=== PATIENT | female | born 1990 | race Two or more races ===

== ENCOUNTER 2019-07-03 13:01 | Emergency (ER) | payer MEDICAID ==
[~2019-07-03] VITALS: Ht 165.1 cm; Wt 57.0 kg
[~2019-07-03 13:01] MED LIST: CLIN-90 PO; HYDR1TAB PO; NO HOME MEDS; PNV; ZOF4T PO; [UNRECOGNIZED DRUG - CODE] PO
[2019-07-03 13:27] VITALS: BP 106/59
[2019-07-03 14:30] LABS: URINE HCG NEGATIVE (NEG)
[2019-07-03 14:31] LABS: CLARITY,URINE SLIGHTLY CLOUDY (Clear); COLOR,URINE YELLOW (Yellow); GLUCOSE, URINE NEGATIVE (Neg); KETONES,URINE 15 mg/dl (Neg); LEUKOCYTE ESTERASE ,URINE NEGATIVE (Neg); NITRITES, URINE POSITIVE (Neg); OCCULT BLOOD,URINE MODERATE (Neg); PROTEIN,URINE TRACE mg/dl (Neg)
[2019-07-03 14:32] LABS: UA COLLECTION TYPE CLN CATCH MIDSTREAM
[2019-07-03 14:37] LABS: BACTERIA,URINE 3+ /HPF (Neg); MUCUS STRANDS MANY /LPF (Neg); SQUAMOUS EPITHELIAL CELL,UR MANY /LPF (FEW)
[2019-07-03] MEDS ORDERED: IBUP-1984 PO (15:11)
== END 2019-07-03 15:23 | disposition home or self-care (01) ==
LOC: ER 13:02
DX: J10.1 Influenza due to other identified influenza virus with other respiratory manifestations (principal); K08.89 Other specified disorders of teeth and supporting structures; G89.29 Other chronic pain; Z56.0 Unemployment, unspecified; Z88.2 Allergy status to sulfonamides; Z88.1 Allergy status to other antibiotic agents; Z79.2 Long term (current) use of antibiotics; Z79.899 Other long term (current) drug therapy
CPT/HCPCS: 71046; 81001; 81025; 87502; 87503; 99284

== ENCOUNTER 2021-10-03 18:11 | Emergency (ER) | payer MEDICAID ==
[~2021-10-03] VITALS: Ht 167.6 cm; Wt 59.1 kg
[~2021-10-03 18:11] MED LIST changes: -CLIN-90 PO; +CLIN-97 PO
[2021-10-03] MEDS ORDERED: NAPR-996 PO (19:22)
[2021-10-03 19:30] VITALS: BP 124/82
== END 2021-10-03 19:31 | disposition home or self-care (01) ==
LOC: ER 18:13
DX: G56.01 Carpal tunnel syndrome, right upper limb (principal); M25.531 Pain in right wrist; G89.29 Other chronic pain; F17.200 Nicotine dependence, unspecified, uncomplicated; Z72.89 Other problems related to lifestyle; Z56.0 Unemployment, unspecified; Z88.1 Allergy status to other antibiotic agents; Z79.2 Long term (current) use of antibiotics; Z79.899 Other long term (current) drug therapy
CPT/HCPCS: 99281

== ENCOUNTER 2021-10-25 19:47 | Emergency (ER) | payer MEDICAID ==
[~2021-10-25] VITALS: Ht 167.6 cm; Wt 59.4 kg
[~2021-10-25 19:47] MED LIST changes: +NAPR-996 PO
[2021-10-25 20:53] VITALS: BP 109/75
[2021-10-26 06:28] LABS: HIV ANTIBODY 1&2 RAPID NON-REACTIVE (Neg)
== END 2021-10-26 00:47 | disposition left against medical advice (07) ==
LOC: ER 19:48
DX: Z11.3 Encounter for screening for infections with a predominantly sexual mode of transmission (principal); G89.29 Other chronic pain; Z72.89 Other problems related to lifestyle; Z56.0 Unemployment, unspecified; Z79.899 Other long term (current) drug therapy; Z88.2 Allergy status to sulfonamides; Z88.1 Allergy status to other antibiotic agents
CPT/HCPCS: 36415; 86592; 86703; 87491; 99283

== ENCOUNTER 2022-05-26 17:58 | Emergency (ER) | payer MEDICAID ==
[~2022-05-26] VITALS: Ht 167.6 cm; Wt 60.0 kg
[2022-05-26 18:04] VITALS: BP 96/59
[2022-05-26] MEDS ORDERED: ketorolac trometh. 30mg/ml inj. IM ONE (18:45)
[2022-05-26] MEDS ORDERED: IBUP-1984 PO (19:22)
== END 2022-05-26 20:00 | disposition home or self-care (01) ==
LOC: ER 17:58
DX: M79.641 Pain in right hand (principal); M25.562 Pain in left knee; G89.29 Other chronic pain; Z56.0 Unemployment, unspecified; Z72.89 Other problems related to lifestyle; Z88.2 Allergy status to sulfonamides; Z88.1 Allergy status to other antibiotic agents; Z79.899 Other long term (current) drug therapy
CPT/HCPCS: 73130; 73564; 96372; 99284; J1885

== ENCOUNTER 2023-12-28 06:46 | Emergency (ER) | payer MEDICAID ==
[~2023-12-28] VITALS: Ht 165.1 cm; Wt 67.4 kg
[2023-12-28 06:51] VITALS: TEMP 100
[2023-12-28] MEDS: normal saline 1000ML IV soln IVB ONE ×3 (07:27→12:30)
[2023-12-28] MEDS: ondansetron/PF 4mg/2ml inj IV ONE (07:37)
[2023-12-28 08:15] LABS: ALBUMIN 2.5 G/DL (3.4-5.0); ANION GAP 9 (8-16); BLOOD UREA NITROGEN 7 MG/DL (7-18); BUN/CREATININE RATIO 9.7 (10.0-20.0); CHLORIDE 107 MMOL/L (99-107); CREATININE 0.72 MG/DL (0.40-0.90); GLUCOSE 99 MG/DL (70-104); SODIUM 139 MMOL/L (135-145); TOTAL CARBON DIOXIDE 23.2 MMOL/L (24-32); eCRCL 99 ML/MIN; eGFR > 90 ML/MIN
[2023-12-28 08:18] LABS: POTASSIUM 2.4 MMOL/L (3.5-5.1)
[2023-12-28] MEDS: potassium CL 10mEq/100ml bag 100 ML IV ONE ×2 (09:23→12:30)
[2023-12-28] MEDS: magnesium sulf-water 2g/50mL 50 ML IV ONE ×2 (09:24→12:31)
[2023-12-28 10:13] LABS: ALANINE AMINOTRANSFERASE 9 U/L (12-78); ALBUMIN/GLOBULIN RATIO 0.8 (1.1-1.5); ALKALINE PHOSPHATASE 58 IU/L (46-116); BILIRUBIN,DIRECT 0.1 MG/DL (0-0.3); BILIRUBIN,TOTAL 0.9 MG/DL (0.1-1.0); MAGNESIUM 1.2 MG/DL (1.5-2.4); TOTAL PROTEIN 5.5 G/DL (6.4-8.2)
[2023-12-28 10:14] LABS: ASPARTATE AMINO TRANSFERASE 9 U/L (10-37)
[2023-12-28] MEDS: potassium CL 10mEq/100ml bag 100 ML IV SCH (10:26)
[2023-12-28 12:24] LABS: HEMATOCRIT 34.8 % (37.7-47.9); HEMOGLOBIN 11.6 G/DL (11.5-16.0); MEAN CORPUSCULAR VOLUME 88.4 FL (81-97); RED BLOOD COUNT 3.94 X10'6 (3.60-4.90); WHITE BLOOD COUNT 15.1 X10'3 (4.5-11.0)
[2023-12-28 12:25] LABS: BASOPHILS % 0 % (0-2); EOSINOPHILS % (AUTO) 0 % (0-6); LYMPHOCYTES # (AUTO) 1.2 X10'3 (1.1-4.8); LYMPHOCYTES % 8 % (24-44); MEAN CORPUSCULAR HEMOGLOBIN 29.4 PG (27-31.2); MEAN CORPUSCULAR HGB CONC 33.2 % (32-36); MONOCYTES # (AUTO) 0.8 X10'3 (0-0.9); MONOCYTES % 5 % (0-12); NEUTROPHILS # (AUTO) 13.1 X10'3 (1.8-7.7); PLATELET COUNT 165 X10'3 (130-400); RED CELL DISTRIBUTION WIDTH 13.9 % (11-16); SEGMENTED NEUTROPHILS % 87 % (36-66)
[2023-12-28] MEDS ORDERED: ONDA-243 PO (13:56)
[2023-12-28 14:34] VITALS: BP 120/89; PULSE 65; RESP 14; O2SAT 100
== END 2023-12-28 14:37 | disposition home or self-care (01) ==
LOC: ER 06:48
DX: K52.9 Noninfective gastroenteritis and colitis, unspecified (principal); Z20.822 Contact with and (suspected) exposure to COVID-19; E86.0 Dehydration; B34.9 Viral infection, unspecified; E87.6 Hypokalemia; E87.20 Acidosis, unspecified; E83.42 Hypomagnesemia; G89.29 Other chronic pain; M54.9 Dorsalgia, unspecified; Z88.2 Allergy status to sulfonamides; Z91.041 Radiographic dye allergy status; Z79.2 Long term (current) use of antibiotics; Z79.899 Other long term (current) drug therapy
CPT/HCPCS: 36415; 80048; 80076; 83735; 85025; 87502; 87503; 87811; 96361; 96365; 96366; 96368; 96375; 99285; J2405; J3480; J7030

== ENCOUNTER 2024-02-26 11:39 | Emergency (ER) | payer MEDICAID ==
[~2024-02-26] VITALS: Ht 165.1 cm; Wt 65.9 kg
[~2024-02-26 11:39] MED LIST changes: +ONDA-243 PO
[2024-02-26 11:43] VITALS: BP 101/50; PULSE 65; RESP 18; O2SAT 99
[2024-02-26 13:36] VITALS: TEMP 98.5
== END 2024-02-26 13:39 | disposition home or self-care (01) ==
LOC: ER 11:39
DX: S39.92XA Unspecified injury of lower back, initial encounter (principal); O99.350 Diseases of the nervous system complicating pregnancy, unspecified trimester; Z88.5 Allergy status to narcotic agent; Z88.6 Allergy status to analgesic agent; Z88.8 Allergy status to other drugs, medicaments and biological substances; W19.XXXA Unspecified fall, initial encounter; Y93.89 Activity, other specified; Y92.89 Other specified places as the place of occurrence of the external cause; Y99.8 Other external cause status
CPT/HCPCS: 99282